=== PATIENT | male | born 1965 | race American Indian/Alaskan Native ===

== ENCOUNTER 2019-06-27 13:45 | Inpatient (IN) | payer BC, OTHER ==
--- NOTE | 2019-06-27 14:00 | Emergency Department Report ---
Blank Doc - Documentation Documentation: 53-year-old male that presents with chronic back pain and dizziness. Denies any head injuries. This initial assessment/diagnostic orders/clinical plan/treatment(s) is/are subject to change based on patient's health status, clinical progression and re- assessment by fellow clinical providers in the ED. Further treatment and workup at subsequent clinical providers discretion. Patient/guardians urged not to elope from the ED as their condition may be serious if not clinically assessed and managed. Initial orders include: 1- Patient sent to MAIN for further evaluation and treatment 2- labs 3- UA 4- EKG
[2019-06-27] MEDS ORDERED: SODIUM CHLORIDE 0.9% 1000 ML 1,000 ML IV ONE ×2 (14:29→15:56)
[2019-06-27 14:50] LABS: Basophils % (Auto) 0.5 % (0.0-1.8); Eosinophils # (Auto) 0.1 K/mm3 (0.0-0.4); Eosinophils % (Auto) 0.6 % (0.0-4.3); Hematocrit 46.4 % (35.5-45.6); Hemoglobin 15.9 gm/dl (11.8-15.2); Lymphocytes # (Auto) 1.5 K/mm3 (1.2-5.4); Lymphocytes % (Auto) 14.7 % (13.4-35.0); Mean Corpuscular HGB Conc 34 % (32-34); Mean Corpuscular Volume 88 fl (84-94); Monocytes # (Auto) 0.7 K/mm3 (0.0-0.8); Platelet Count 185 K/mm3 (140-440); Red Blood Count 5.29 M/mm3 (3.65-5.03); Red Cell Distribution Width 13.4 % (13.2-15.2)
--- NOTE | 2019-06-27 15:01 | Emergency Department Report ---
ED Dizziness HPI - General Chief Complaint: Dizziness Stated Complaint: DIZZY/LOWER BACK PAIN Time Seen by Provider: 06/27/19 13:58 Source: patient Mode of arrival: Ambulatory Limitations: No Limitations - History of Present Illness Initial Comments: 53-year-old male, history of hypertension, presents to ED with dizziness. Patient is in the [employer], had a PT test this morning which consisted of pushups, sit ups and a 2 mile run. Patient finished his test at approximately noon. He reported feeling dizzy and lightheaded afterward. Patient states he drank one bottle of water. Patient has history of chronic lower back pain, states pain is in the area of his usual pain, however the pain only started following the PT tests. Patient admits that he has not been regularly exercising, and that this morning was the first time that he has done this much physical activity in a while. Patient denies headache, chest pain, shortness of breath, extremity pain. MD Complaint: dizziness, lightheadedness -: This afternoon Description: lightheadedness History of Same: No Severity: moderate Improves With: rehydration Associated Symptoms: denies: chest pain, confusion, fever/chills, shortness of breath - Related Data Allergies Allergy/AdvReac Type Severity Reaction Status Date / Time No Known Allergies Allergy Unverified 06/27/19 13:47 ED Review of Systems ROS: Stated complaint: DIZZY/LOWER BACK PAIN Other details as noted in HPI Comment: All other systems reviewed and negative Constitutional: denies: chills, fever Respiratory: denies: shortness of breath Cardiovascular: denies: chest pain, palpitations Gastrointestinal: denies: abdominal pain, nausea, vomiting Musculoskeletal: back pain Neurological: denies: headache ED Past Medical Hx - Past Medical History Hx Hypertension: Yes - Surgical History Past Surgical History?: No - Social History Smoking Status: Never Smoker Substance Use Type: None ED Physical Exam - General Limitations: No Limitations General appearance: alert, in no apparent distress - Head Head exam: Present: atraumatic, normocephalic - Eye Eye exam: Present: normal appearance, PERRL, EOMI - ENT ENT exam: Present: mucous membranes moist - Neck Neck exam: Present: normal inspection - Respiratory Respiratory exam: Present: normal lung sounds bilaterally. Absent: respiratory distress - Cardiovascular Cardiovascular Exam: Present: regular rate, normal rhythm - GI/Abdominal GI/Abdominal exam: Present: soft. Absent: distended, tenderness - Extremities Exam Extremities exam: Present: normal inspection, full ROM. Absent: tenderness - Neurological Exam Neurological exam: Present: alert, oriented X3, CN II-XII intact. Absent: motor sensory deficit - Psychiatric Psychiatric exam: Present: normal affect, normal mood - Skin Skin exam: Present: warm, dry, intact, normal color ED Course Vital Signs 06/27/19 06/27/19 13:58 15:00 Temperature 97.8 F Pulse Rate 87 78 Respiratory 18 11 L Rate Blood Pressure 88/57 Blood Pressure 94/66 [Left] O2 Sat by Pulse 100 100 Oximetry ED Medical Decision Making - Lab Data Result diagrams: 06/27/19 14:40 06/27/19 14:40 - EKG Data -: EKG Interpreted by Me EKG shows normal: sinus rhythm, axis, intervals, QRS complexes, ST-T waves Rate: normal - EKG Data Interpretation: no acute changes - Radiology Data Radiology results: report reviewed, image reviewed - Medical Decision Making 53-year-old male with dehydration, hypotension, acute renal failure, rhabdomyolysis following [employer] PT test this morning. Patient given 2 L of fluid here in the ED. Vital signs have this improved. EKG is unremarkable. Chest x-ray normal. Will admit to hospitalist for further management. - Differential Diagnosis dehydration, rhabdomyolysis, renal failure Critical care attestation.: If time is entered above; I have spent that time in minutes in the direct care of this critically ill patient, excluding procedure time. ED Disposition Clinical Impression: Rhabdomyolysis, Acute renal failure, Dehydration, Hypotension Disposition: OP ADMIT IP TO THIS HOSP Is pt being admited?: Yes Condition: Stable Time of Disposition: 16:46
[2019-06-27 15:02] LABS: Partial Thromboplastin Time 24.4 Sec. (24.2-36.6)
--- NOTE | 2019-06-27 15:12 | XRay Report ---
CHEST 1 VIEW INDICATION: weakness. COMPARISON: None FINDINGS: Support devices: None. Heart: Within normal limits. Lungs/Pleura: No acute air space or interstitial disease. Additional findings: None. IMPRESSION: 1. No acute findings. Signer Name: Maury Espinal MD Signed: 06/27/2019 3:08 PM Workstation Name: [id number]
[2019-06-27 15:15] LABS: Albumin 4.9 g/dL (3.9-5); Calcium 10.2 mg/dL (8.4-10.2)
[2019-06-27 15:47] LABS: Chol/HDL Ratio 3.48 %
[2019-06-27 16:27] LABS: Bacteria,Urine 1+ /HPF (Negative); Bilirubin,Urine NEG (Negative); Blood,Urine NEG (Negative); Color,Urine Yellow (Yellow); Hyaline Casts,Urine 5 /LPF; Mucus,Urine FEW /HPF; Urobilinogen,Urine < 2.0 mg/dL (<2.0)
[2019-06-27] MEDS ORDERED: ACETAMINOPHEN 325 MG TAB PO PRN (17:10)
[2019-06-27] MEDS ORDERED: ONDANSETRON 4 MG/2 ML INJ IV PRN (17:10)
[2019-06-27] MEDS ORDERED: ALBUTEROL 2.5 MG/3 ML NEBU IH PRN (17:10)
--- NOTE | 2019-06-27 17:10 | History and Physical Report ---
History of Present Illness Chief complaint: I almost passed out History of present illness: 53 YO Male with HTN, Obesity presents to ED for evaluation. Pt states that he completed his [employer] Test today. Shortly after completion, he experienced dizziness, lightheadedness, as well as discomfort in his lower back. Pt also reports feeling hot and subsequently drank a bottle of water without relief. Pt transported to [facility] via private vehicle. Pt seen and evaluated in ED and found to have ROBE, Rhabdomyolysis, as well as heat Exhaustion. Pt admitted to medical floor and treated with IVF resuscitation therapy. Pt denies fever, chills, CP, Palpitations, Syncope, BRBPR, Productive cough, Headache, David tigo, Seizure, shortness of breath, or recent ill contacts. No prior admission for review. No medication listed for reconciliation at time of admission. Past History Past Medical History: hypertension Past Surgical History: No surgical history, Other (reviewed) Social history: single. denies: smoking, alcohol abuse, prescription drug abuse Family history: hypertension Medications and Allergies Allergies Allergy/AdvReac Type Severity Reaction Status Date / Time No Known Allergies Allergy Unverified 06/27/19 13:47 Review of Systems Constitutional: no weight loss, no weight gain, no fever, no chills Ears, nose, mouth and throat: no ear pain, no ear discharge, no tinnitis, no decreased hearing, no nose pain, no nasal congestion Cardiovascular: lightheadedness, no chest pain, no orthopnea, no palpitations, no rapid/irregular heart beat, no edema, no syncope Respiratory: no cough, no cough with sputum, no excessive sputum, no hemoptysis, no shortness of breath Gastrointestinal: no abdominal pain, no nausea, no vomiting, no diarrhea, no constipation, no change in bowel habits Genitourinary Male: other, no hematuria, no flank pain, no discharge, no urinary frequency, no urinary hesitancy, no nocturia, no erectile dysfunction Rectal: no pain, no incontinence, no bleeding Musculoskeletal: no neck stiffness, no neck pain, no shooting arm pain, no arm numbness/tingling, no low back pain, no shooting leg pain Integumentary: no rash, no pruritis, no redness, no sores, no wounds, no jaundice Neurological: no head injury, no transient paralysis, no paralysis, no weakness, no parathesias, no numbness, no tingling, no seizures Psychiatric: no anxiety, no memory loss, no change in sleep habits, no insomnia, no hypersomnia, no change in libido, no disorientation Endocrine: no cold intolerance, no heat intolerance, no polyphagia, no excessive thirst, no polyuria, no excessive sweating Hematologic/Lymphatic: no easy bruising, no easy bleeding, no lymphadenopathy, no lymphedema Allergic/Immunologic: no urticaria, no allergic rhinitis, no persistent infe ctions, no anaphylaxis, no angioedema Exam - Constitutional Vitals: Temp Pulse Resp BP Pulse Ox 97.8 F 78 11 L 94/66 100 06/27/19 13:58 06/27/19 15:00 06/27/19 15:00 06/27/19 15:00 06/27/19 15:00 General appearance: Present: no acute distress, well-nourished - EENT Eyes: Present: PERRL ENT: hearing intact, clear oral mucosa - Neck Neck: Present: supple, normal ROM - Respiratory Respiratory effort: normal Respiratory: bilateral: CTA - Cardiovascular Heart Sounds: Present: S1 & S2. Absent: rub, click - Extremities Extremities: pulses symmetrical, No edema Peripheral Pulses: within normal limits - Abdominal General gastrointestinal: Present: soft, non-tender, non-distended, normal bowel sounds Male genitourinary: Present: normal - Integumentary Integumentary: Present: clear, warm, dry - Musculoskeletal Musculoskeletal: gait normal, strength equal bilaterally - Psychiatric Psychiatric: appropriate mood/affect, intact judgment & insight - Neurologic Neurologic: CNII-XII intact, moves all extremities Results - Labs CBC & Chem 7: 06/27/19 14:40 06/27/19 14:40 Labs: Abnormal lab results 06/27/19 06/27/19 06/27/19 Range/Units 14:40 14:40 14:40 RBC 5.29 H (3.65-5.03) M/mm3 Hgb 15.9 H (11.8-15.2) gm/dl Hct 46.4 H (35.5-45.6) % Seg Neutrophils % 77.2 H (40.0-70.0) % Seg Neutrophils # 8.1 H (1.8-7.7) K/mm3 Chloride 97.4 L (98-107) mmol/L Creatinine 2.0 H (0.8-1.5) mg/dL AST 41 H (5-40) units/L Total Creatine Kinase 1424 H (55-170) units/L Troponin T 0.036 H (0.00-0.029) ng/mL Assessment and Plan - Patient Problems (1) ROBE (acute kidney injury) Current Visit: Yes Status: Acute Plan to address problem: IVF resuscitation therapy, monitor uop q shift, urine electrolytes, repeat bmp in AM. monitor serum creatnine. (2) Heat exhaustion due to water depletion Current Visit: Yes Status: Acute Qualifiers: Encounter type: initial encounter Qualified Code(s): T67.3XXA - Heat exhaustion, anhydrotic, initial encounter Plan to address problem: IVF resuscitation therapy, supportive care. (3) Rhabdomyolysis Current Visit: Yes Status: Acute Qualifiers: Encounter type: initial encounter Plan to address problem: IVF resuscitation therapy, IV bicarbonate therapy, monitor uop q shift, monitor serum creatnine, repeat bmp. (4) DVT prophylaxis Current Visit: Yes Status: Acute Plan to address problem: SCD to BLE while in bed, Pt ambulatory
[2019-06-27] MEDS ORDERED: SODIUM BICARB 8.4% 50 MEQ/50 ML SYRINGE IV ONE (18:14)
[2019-06-27] MEDS ORDERED: SODIUM BICARB 4.2% 5 MEQ/10 ML SYRINGE ONE (18:21)
[2019-06-27 18:29] LABS: Creatine Kinase MB 10.2 ng/mL (0.0-4.0)
[2019-06-27] MEDS: FAMOTIDINE 20 MG TAB PO SCH (22:25)
[2019-06-28] MEDS: SODIUM CHLORIDE 0.9% 1000 ML 1,000 ML IV SCH ×3 (01:43→16:55)
[2019-06-28 08:26] LABS: BUN/Creatinine Ratio 12; Blood Urea Nitrogen 16 mg/dL (9-20); Calcium 9.2 mg/dL (8.4-10.2); Hemolysis Index 14
[2019-06-28] MEDS: FAMOTIDINE 20 MG TAB PO SCH ×2 (09:19→21:52)
--- NOTE | 2019-06-28 16:53 | Progress Note ---
Assessment and Plan (1) ROBE (acute kidney injury) Current Visit: Yes Status: Acute Plan to address problem: IVF resuscitation therapy, monitor uop q shift, urine electrolytes, repeat bmp in AM. monitor serum creatnine. Creatinine improving Vasomotor nephropathy (2) Rhabdomyolysis Current Visit: Yes Status: Acute Qualifiers: Encounter type: initial encounter Plan to address problem: IVF resuscitation therapy, IV bicarbonate therapy, monitor uop q shift, monitor serum creatnine, repeat bmp. CPK trending up Needs iV fluids and monitoring of CK levels q12h Discharge when CK trending down. (3)acute dehydration IV fluids for now (4) DVT prophylaxis Current Visit: Yes Status: Acute Plan to address problem: SCD to BLE while in bed, Pt ambulatory Subjective Date of service: 06/28/19 Principal diagnosis: rhabdomyolysis, acute dehydration, ROBE. Interval history: 53 YO Male with HTN, Obesity presents to ED for evaluation. Pt states that he completed his [employer] Test today. Shortly after completion, he experienced dizziness, lightheadedness, as well as discomfort in his lower back. Pt also reports feeling hot and subsequently drank a bottle of water without relief. Pt transported to [facility] via private vehicle. Pt seen and evaluated in ED and found to have ROBE, Rhabdomyolysis, as well as heat Exhaustion. Pt a dmitted to medical floor and treated with IVF resuscitation therapy. Pt denies fever, chills, CP, Palpitations, Syncope, BRBPR, Productive cough, Headache, Vertigo, Seizure, shortness of breath, or recent ill contacts. No prior admission for review. No medication listed for reconciliation at time of admission. 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 Patient is a unaccustomed to doing this excessive exercise. Patient was not conditioned to do the excessive exertion. Still has muscle aches Objective - Constitutional Vitals: Vital Signs - 12hr 06/28/19 06/28/19 05:18 13:00 Temperature 98.3 F 98.0 F Pulse Rate 63 78 Respiratory 20 Rate Blood Pressure 119/77 Blood Pressure 125/65 [Left] O2 Sat by Pulse 96 Oximetry - Labs CBC & Chem 7: 06/27/19 14:40 06/28/19 06:50 Labs: Abnormal lab results 06/27/19 06/28/19 06/28/19 Range/Units 18:00 06:50 06:50 Glucose 130 H (75-100) mg/dL Total Creatine Kinase 1453 H 2182 H (55-170) units/L CK-MB (CK-2) 10.2 H (0.0-4.0) ng/mL
[2019-06-29] MEDS: SODIUM CHLORIDE 0.9% 1000 ML 1,000 ML IV SCH ×3 (01:28→18:22)
[2019-06-29 05:37] LABS: Alanine Aminotransferase 24 units/L (7-56); Albumin 3.6 g/dL (3.9-5); BUN/Creatinine Ratio 11; Blood Urea Nitrogen 13 mg/dL (9-20); Calcium 8.6 mg/dL (8.4-10.2); Hemolysis Index 8
[2019-06-29] MEDS: FAMOTIDINE 20 MG TAB PO SCH ×2 (09:25→21:53)
--- NOTE | 2019-06-29 15:14 | Progress Note ---
Assessment and Plan Assessment and plan: Acute kidney injury IVF resuscitation therapy, monitor uop q shift, urine electrolytes, repeat bmp in AM. monitor serum creatnine. Creatinine improving Vasomotor nephropathy Rhabdomyolysis IVF resuscitation therapy, IV bicarbonate therapy, monitor uop q shift, Creatinine kinase 1526 Needs iV fluids and monitoring of CK levels q12h To Discharge when CK trending down. acute dehydration IV fluids for now DVT prophylaxis SCD to BLE while in bed, Pt ambulatory Poss discharge tomorrow History Interval history: No more dizziness no more lightheadedness Hospitalist Physical - Physical exam Narrative exam: Gen: Not in acute distress, sitting up in bed HEENT: Normocephalic, atraumatic Neck: supple, no JVD Heart: S1 and S2 reg, no murmurs, rubs or gallop Lungs: Clear to auscultation, no rhonchi, no wheeze Abd: soft, non tender, non distended, normal BS, Ext: No edema, no clubbing, no cyanosis Neuro: Awake, alert, oriented X 3, no focal neurological signs - Constitutional Vitals: Temp Pulse Resp BP Pulse Ox 98.9 F 59 L 18 151/97 97 06/29/19 11:58 06/29/19 11:58 06/29/19 11:58 06/29/19 11:58 06/29/19 11:58 General appearance: Present: no acute distress, well-nourished Results - Labs CBC & Chem 7: 06/27/19 14:40 06/29/19 04:38 Labs: Laboratory Last Values WBC 10.4 K/mm3 (4.5-11.0) 06/27/19 14:40 RBC 5.29 M/mm3 (3.65-5.03) H 06/27/19 14:40 Hgb 15.9 gm/dl (11.8-15.2) H 06/27/19 14:40 Hct 46.4 % (35.5-45.6) H 06/27/19 14:40 MCV 88 fl (84-94) 06/27/19 14:40 MCH 30 pg (28-32) 06/27/19 14:40 MCHC 34 % (32-34) 06/27/19 14:40 RDW 13.4 % (13.2-15.2) 06/27/19 14:40 Plt Count 185 K/mm3 (140-440) 06/27/19 14:40 Lymph % (Auto) 14.7 % (13.4-35.0) 06/27/19 14:40 [place] % (Auto) 7.0 % (0.0-7.3) 06/27/19 14:40 Eos % (Auto) 0.6 % (0.0-4.3) 06/27/19 14:40 Baso % (Auto) 0.5 % (0.0-1.8) 06/27/19 14:40 Lymph # 1.5 K/mm3 (1.2-5.4) 06/27/19 14:40 [place] # 0.7 K/mm3 (0.0-0.8) 06/27/19 14:40 Eos # 0.1 K/mm3 (0.0-0.4) 06/27/19 14:40 Baso # 0.0 K/mm3 (0.0-0.1) 06/27/19 14:40 Seg Neutrophils % 77.2 % (40.0-70.0) H 06/27/19 14:40 Seg Neutrophils # 8.1 K/mm3 (1.8-7.7) H 06/27/19 14:40 PT 13.1 Sec. (12.2-14.9) 06/27/19 14:40 INR 1.00 (0.87-1.13) 06/27/19 14:40 APTT 24.4 Sec. (24.2-36.6) 06/27/19 14:40 Sodium 142 mmol/L (137-145) 06/29/19 04:38 Potassium 3.9 mmol/L (3.6-5.0) 06/29/19 04:38 Chloride 108.4 mmol/L (98-107) H 06/29/19 04:38 Carbon Dioxide 23 mmol/L (22-30) 06/29/19 04:38 Anion Gap 15 mmol/L 06/29/19 04:38 BUN 13 mg/dL (9-20) 06/29/19 04:38 Creatinine 1.2 mg/dL (0.8-1.5) 06/29/19 04:38 Estimated GFR > 60 ml/min 06/29/19 04:38 BUN/Creatinine Ratio 11 % 06/29/19 04:38 Glucose 116 mg/dL (75-100) H 06/29/19 04:38 Calcium 8.6 mg/dL (8.4-10.2) 06/29/19 04:38 Magnesium 1.90 mg/dL (1.7-2.3) 06/29/19 04:38 Total Bilirubin 0.20 mg/dL (0.1-1.2) 06/29/19 04:38 AST 35 units/L (5-40) 06/29/19 04:38 ALT 24 units/L (7-56) 06/29/19 04:38 Alkaline Phosphatase 52 units/L (35-129) 06/29/19 04:38 Total Creatine Kinase 1523 units/L (55-170) H 06/29/19 09:24 CK-MB (CK-2) 10.2 ng/mL (0.0-4.0) H 06/27/19 18:00 CK-MB (CK-2) Rel Index 0.7 (0-4) 06/27/19 18:00 Troponin T 0.017 ng/mL (0.00-0.029) 06/27/19 21:38 Total Protein 6.0 g/dL (6.3-8.2) L D 06/29/19 04:38 Albumin 3.6 g/dL (3.9-5) L 06/29/19 04:38 Albumin/Globulin Ratio 1.5 % 06/29/19 04:38 Triglycerides 108 mg/dL (2-149) 06/27/19 14:40 Cholesterol 164 mg/dL (50-199) 06/27/19 14:40 LDL Cholesterol Direct 105 mg/dL (50-130) 06/27/19 14:40 HDL Cholesterol 47 mg/dL (40-59) 06/27/19 14:40 Cholesterol/HDL Ratio 3.48 % 06/27/19 14:40 Urine Color Yellow (Yellow) 06/27/19 15:51 Urine Turbidity Slightly-cloudy (Clear) 06/27/19 15:51 Urine pH 5.0 (5.0-7.0) 06/27/19 15:51 Ur Specific [place] 1.015 (1.003-1.030) 06/27/19 15:51 Urine Protein 30 mg/dl mg/dL (Negative) 06/27/19 15:51 Urine Glucose (UA) Neg mg/dL (Negative) 06/27/19 15:51 Urine Ketones Neg mg/dL (Negative) 06/27/19 15:51 Urine Blood Neg (Negative) 06/27/19 15:51 Urine Nitrite Neg (Negative) 06/27/19 15:51 Urine Bilirubin Neg (Negative) 06/27/19 15:51 Urine Urobilinogen < 2.0 mg/dL (<2.0) 06/27/19 15:51 Ur Leukocyte Esterase Neg (Negative) 06/27/19 15:51 Urine WBC (Auto) 2.0 /HPF (0.0-6.0) 06/27/19 15:51 Urine RBC (Auto) 3.0 /HPF (0.0-6.0) 06/27/19 15:51 U Epithel Cells (Auto) < 1.0 /HPF (0-13.0) 06/27/19 15:51 Urine Bacteria (Auto) 1+ /HPF (Negative) 06/27/19 15:51 Hyaline Casts 5 /LPF 06/27/19 15:51 Urine Mucus Few /HPF 06/27/19 15:51 Active Medications - Current Medications Current Medications: Generic Name Dose Route Start Last Admin Trade Name Freq PRN Reason Stop Dose Admin Acetaminophen 650 mg 06/27/19 17:10 Tylenol PO Q4H PRN Pain MILD(1-3)/Fever >100.5/PETERS Albuterol 2.5 mg 06/27/19 17:10 Proventil IH Q4HRT PRN Shortness Of Breath Famotidine 20 mg 06/27/19 22:00 06/29/19 09:25 Pepcid PO 20 mg BID CHARY Administration Sodium Chloride 1,000 mls @ 125 mls/hr 06/27/19 18:00 06/29/19 09:25 Nacl 0.9% 1000 Ml IV 125 mls/hr DIRECT CHARY Administration Ondansetron HCl 4 mg 06/27/19 17:10 Zofran IV Q8H PRN Nausea And Vomiting Sodium Chloride 10 ml 06/27/19 22:00 06/29/19 09:31 Sodium Chloride Flush Syringe 10 Ml IV 10 ml BID CHARY Administration Sodium Chloride 10 ml 06/27/19 17:10 11/03/19 22:26 Sodium Chloride Flush Syringe 10 Ml IV 10 ml PRN PRN Administration LINE FLUSH
[2019-06-30] MEDS: SODIUM CHLORIDE 0.9% 1000 ML 1,000 ML IV SCH ×3 (02:02→17:45)
--- NOTE | 2019-06-30 09:06 | Progress Note ---
Assessment and Plan Assessment and plan: Acute kidney injury IVF resuscitation therapy, monitor uop q shift, urine electrolytes, repeat bmp in AM. monitor serum creatnine. Creatinine improving Vasomotor nephropathy Rhabdomyolysis IVF resuscitation therapy, IV bicarbonate therapy, monitor uop q shift, Creatinine kinase higher at 1670 today Increased iV fluids and monitoring of CK levels q12h To Discharge when CK trending down. acute dehydration IV fluids for now DVT prophylaxis SCD to BLE while in bed, Pt ambulatory Poss discharge tomorrow History Interval history: No more dizziness no more lightheadedness Hospitalist Physical - Physical exam Narrative exam: Gen: Not in acute distress, sitting up in bed HEENT: Normocephalic, atraumatic Neck: supple, no JVD Heart: S1 and S2 reg, no murmurs, rubs or gallop Lungs: Clear to auscultation, no rhonchi, no wheeze Abd: soft, non tender, non distended, normal BS, Ext: No edema, no clubbing, no cyanosis Neuro: Awake, alert, oriented X 3, no focal neurological signs - Constitutional Vitals: Temp Pulse Resp BP Pulse Ox 98.0 F 61 18 145/95 96 06/30/19 04:44 06/30/19 04:44 06/30/19 06:17 06/30/19 04:44 06/30/19 04:44 General appearance: Present: no acute distress, well-nourished Results - Labs CBC & Chem 7: 06/27/19 14:40 06/29/19 04:38 Labs: Laboratory Last Values WBC 10.4 K/mm3 (4.5-11.0) 06/27/19 14:40 RBC 5.29 M/mm3 (3.65-5.03) H 06/27/19 14:40 Hgb 15.9 gm/dl (11.8-15.2) H 06/27/19 14:40 Hct 46.4 % (35.5-45.6) H 06/27/19 14:40 MCV 88 fl (84-94) 06/27/19 14:40 MCH 30 pg (28-32) 06/27/19 14:40 MCHC 34 % (32-34) 06/27/19 14:40 RDW 13.4 % (13.2-15.2) 06/27/19 14:40 Plt Count 185 K/mm3 (140-440) 06/27/19 14:40 Lymph % (Auto) 14.7 % (13.4-35.0) 06/27/19 14:40 [place] % (Auto) 7.0 % (0.0-7.3) 06/27/19 14:40 Eos % (Auto) 0.6 % (0.0-4.3) 06/27/19 14:40 Baso % (Auto) 0.5 % (0.0-1.8) 06/27/19 14:40 Lymph # 1.5 K/mm3 (1.2-5.4) 06/27/19 14:40 [place] # 0.7 K/mm3 (0.0-0.8) 06/27/19 14:40 Eos # 0.1 K/mm3 (0.0-0.4) 06/27/19 14:40 Baso # 0.0 K/mm3 (0.0-0.1) 06/27/19 14:40 Seg Neutrophils % 77.2 % (40.0-70.0) H 06/27/19 14:40 Seg Neutrophils # 8.1 K/mm3 (1.8-7.7) H 06/27/19 14:40 PT 13.1 Sec. (12.2-14.9) 06/27/19 14:40 INR 1.00 (0.87-1.13) 06/27/19 14:40 APTT 24.4 Sec. (24.2-36.6) 06/27/19 14:40 Sodium 142 mmol/L (137-145) 06/29/19 04:38 Potassium 3.9 mmol/L (3.6-5.0) 06/29/19 04:38 Chloride 108.4 mmol/L (98-107) H 06/29/19 04:38 Carbon Dioxide 23 mmol/L (22-30) 06/29/19 04:38 Anion Gap 15 mmol/L 06/29/19 04:38 BUN 13 mg/dL (9-20) 06/29/19 04:38 Creatinine 1.2 mg/dL (0.8-1.5) 06/29/19 04:38 Estimated GFR > 60 ml/min 06/29/19 04:38 BUN/Creatinine Ratio 11 % 06/29/19 04:38 Glucose 116 mg/dL (75-100) H 06/29/19 04:38 Calcium 8.6 mg/dL (8.4-10.2) 06/29/19 04:38 Magnesium 1.90 mg/dL (1.7-2.3) 06/29/19 04:38 Total Bilirubin 0.20 mg/dL (0.1-1.2) 06/29/19 04:38 AST 35 units/L (5-40) 06/29/19 04:38 ALT 24 units/L (7-56) 06/29/19 04:38 Alkaline Phosphatase 52 units/L (35-129) 06/29/19 04:38 Total Creatine Kinase 1670 units/L (55-170) H 06/30/19 08:31 CK-MB (CK-2) 10.2 ng/mL (0.0-4.0) H 06/27/19 18:00 CK-MB (CK-2) Rel Index 0.7 (0-4) 06/27/19 18:00 Troponin T 0.017 ng/mL (0.00-0.029) 06/27/19 21:38 Total Protein 6.0 g/dL (6.3-8.2) L D 06/29/19 04:38 Albumin 3.6 g/dL (3.9-5) L 06/29/19 04:38 Albumin/Globulin Ratio 1.5 % 06/29/19 04:38 Triglycerides 108 mg/dL (2-149) 06/27/19 14:40 Cholesterol 164 mg/dL (50-199) 06/27/19 14:40 LDL Cholesterol Direct 105 mg/dL (50-130) 06/27/19 14:40 HDL Cholesterol 47 mg/dL (40-59) 06/27/19 14:40 Cholesterol/HDL Ratio 3.48 % 06/27/19 14:40 Urine Color Yellow (Yellow) 06/27/19 15:51 Urine Turbidity Slightly-cloudy (Clear) 06/27/19 15:51 Urine pH 5.0 (5.0-7.0) 06/27/19 15:51 Ur Specific [place] 1.015 (1.003-1.030) 06/27/19 15:51 Urine Protein 30 mg/dl mg/dL (Negative) 06/27/19 15:51 Urine Glucose (UA) Neg mg/dL (Negative) 06/27/19 15:51 Urine Ketones Neg mg/dL (Negative) 06/27/19 15:51 Urine Blood Neg (Negative) 06/27/19 15:51 Urine Nitrite Neg (Negative) 06/27/19 15:51 Urine Bilirubin Neg (Negative) 06/27/19 15:51 Urine Urobilinogen < 2.0 mg/dL (<2.0) 06/27/19 15:51 Ur Leukocyte Esterase Neg (Negative) 06/27/19 15:51 Urine WBC (Auto) 2.0 /HPF (0.0-6.0) 06/27/19 15:51 Urine RBC (Auto) 3.0 /HPF (0.0-6.0) 06/27/19 15:51 U Epithel Cells (Auto) < 1.0 /HPF (0-13.0) 06/27/19 15:51 Urine Bacteria (Auto) 1+ /HPF (Negative) 06/27/19 15:51 Hyaline Casts 5 /LPF 06/27/19 15:51 Urine Mucus Few /HPF 06/27/19 15:51 Active Medications - Current Medications Current Medications: Generic Name Dose Route Start Last Admin Trade Name Freq PRN Reason Stop Dose Admin Acetaminophen 650 mg 06/27/19 17:10 06/30/19 05:17 Tylenol PO 650 mg Q4H PRN Administration Pain MILD(1-3)/Fever >100.5/PETERS Albuterol 2.5 mg 06/27/19 17:10 Proventil IH Q4HRT PRN Shortness Of Breath Atorvastatin Calcium 40 mg 06/30/19 10:00 Lipitor PO DAILY CHARY Famotidine 20 mg 06/27/19 22:00 06/29/19 21:53 Pepcid PO 20 mg BID CHARY Administration Hydrochlorothiazide 25 mg 06/30/19 10:00 Hctz PO QDAY CHARY Sodium Chloride 1,000 mls @ 125 mls/hr 06/27/19 18:00 06/30/19 02:02 Nacl 0.9% 1000 Ml IV 125 mls/hr DIRECT CHARY Administration Lisinopril 20 mg 06/30/19 10:00 Zestril PO QDAY CHARY Ondansetron HCl 4 mg 06/27/19 17:10 Zofran IV Q8H PRN Nausea And Vomiting Sodium Chloride 10 ml 06/27/19 22:00 06/29/19 21:53 Sodium Chloride Flush Syringe 10 Ml IV 10 ml BID CHARY Administration Sodium Chloride 10 ml 06/27/19 17:10 06/27/19 22:26 Sodium Chloride Flush Syringe 10 Ml IV 10 ml PRN PRN Administration LINE FLUSH Tamsulosin HCl 0.4 mg 06/30/19 10:00 Flomax PO DAILY CHARY
[2019-06-30] MEDS: FAMOTIDINE 20 MG TAB PO SCH ×2 (09:44→21:45)
[2019-06-30] MEDS: amLODIPine 5 MG TAB PO SCH (09:44)
[2019-06-30] MEDS: TAMSULOSIN 0.4 MG CAP PO SCH (09:45)
[2019-06-30] MEDS ORDERED: LISINOPRIL 20 MG TAB PO SCH (10:00)
[2019-06-30] MEDS ORDERED: HYDROCHLOROTHIAZIDE PO SCH (10:00)
[2019-06-30] MEDS ORDERED: LISINOPRIL PO SCH (10:00)
[2019-06-30] MEDS ORDERED: hydroCHLOROthiazide 25 MG TAB PO SCH (10:00)
[2019-06-30] MEDS: HEPARIN 5,000 UNIT/1 ML VIAL SUB-Q SCH (21:44)
[2019-07-01] MEDS: SODIUM CHLORIDE 0.9% 1000 ML 1,000 ML IV SCH (01:31)
[2019-07-01] MEDS: HEPARIN 5,000 UNIT/1 ML VIAL SUB-Q SCH ×2 (01:32→05:43)
--- NOTE | 2019-07-01 08:16 | Discharge Summary ---
Providers - Providers Date of Admission: 06/27/19 17:10 Date of discharge: 07/01/19 Attending physician: NGA MORENO Primary care physician: MICHELE ARRINGTON MD Hospitalization Condition: Fair Hospital course: Patient is 53 YO Male with HTN, Obesity presented to ED for evaluation. Pt states that he completed his [employer] Test today. Shortly after completion, he experienced dizziness, lightheadedness, as well as discomfort in his lower back. Pt also reports feeling hot and subsequently drank a bottle of water without relief. He was seen and evaluated in ED and found to have ROBE, Rhabdomyolysis, as well as heat Exhaustion. Acute kidney injury due to vasomotor nephropathy Now resolved after iv fluid therapy Creatinine back to baseline Rhabdomyolysis Improved Dehydration Managed with iv fluids Total time spent on discharge, 33 mins. Disposition: TO HOME OR SELFCARE - Discharge Diagnoses (1) Vasomotor nephropathy Status: Acute (2) ROBE (acute kidney injury) Status: Acute (3) Dehydration Status: Acute (4) Heat exhaustion due to water depletion Status: Acute Qualifiers: Encounter type: initial encounter Qualified Code(s): T67.3XXA - Heat exhaustion, anhydrotic, initial encounter (5) Hypotension Status: Acute (6) Rhabdomyolysis Status: Acute Qualifiers: Encounter type: initial encounter Core Measure Documentation - Palliative Care Palliative Care/ Comfort Measures: Not Applicable - Core Measures Any of the following diagnoses?: none Exam - Constitutional Vitals: Temp Pulse Resp BP Pulse Ox 97.1 F L 55 L 18 151/88 90 07/01/19 05:28 07/01/19 05:28 07/01/19 05:28 07/01/19 05:28 07/01/19 05:28 Plan Diet: low fat, low cholesterol, low salt Plan of Treatment: 1.Follow up with PCP or [facility] in 1 week. 2.Repeat Creatine kinase in 1 week to be followed by PCP 3.No strenous activity until cleared by Physician 4.Hold Atorvastatin because of rhabdomyolysis. To be resumed by PCP when rhabdomyolysis completely resolved. Follow up with: PRIMARY CAREMD [Primary Care Provider] - 3-5 Days Prescriptions: amLODIPine 10 mg PO DAILY #30 tab
[2019-07-01] MEDS: amLODIPine 5 MG TAB PO SCH (10:28)
[2019-07-01] MEDS: FAMOTIDINE 20 MG TAB PO SCH (10:28)
[2019-07-01] MEDS: TAMSULOSIN 0.4 MG CAP PO SCH (10:33)
[2019-07-01 13:10] VITALS: BP 145/95
== END 2019-07-01 13:40 | disposition home or self-care (01) | DRG 557 ==
LOC: ED 13:45 → 3A 17:10
PROVIDERS: ADMIT Internal Medicine; ATTEND Internal Medicine
DX: M62.82 Rhabdomyolysis (principal); N17.0 Acute kidney failure with tubular necrosis; T67.3XXA Heat exhaustion, anhydrotic, initial encounter; E86.0 Dehydration; I10 Essential (primary) hypertension; Z68.34 Body mass index [BMI] 34.0-34.9, adult; I95.9 Hypotension, unspecified; E66.9 Obesity, unspecified; Z82.49 Family history of ischemic heart disease and other diseases of the circulatory system; Y93.89 Activity, other specified; Y92.89 Other specified places as the place of occurrence of the external cause; Y99.8 Other external cause status
CPT/HCPCS: 36415; 71045; 80048; 80053; 80061; 81001; 82550; 82553; 83735; 84484; 85025; 85610; 85730; 93005; 93010; 96374; G0378; J1644; J7030